=== PATIENT | male | born 1945 | race Caucasian/White ===

== ENCOUNTER → 2017-08-23 | Outpatient (CLI) | payer OTHER, MEDICARE ==
[~2017-08-23] VITALS: Ht 177.8 cm; Wt 83.9 kg
[~2017-08-23] MED LIST: ASPIR 8181 MG PO; CETIRIZINE HCL5 MG PO; FLOMAX0.4 MG PO; MULTI VITAMIN1 EACH PO; NEXIUM40 MG PO; WELLBUTRIN SR150 MG PO
--- NOTE | ~2017-08-23 | S ---
[facility] [address] SURGICAL PATH RPT PROCEDURE Name: BHAVIN RIZZO Room #: REG [facility] MManjinder.#: [id number] Admission: 08/23/17 Date of : 41 Discharge: Report #: [id number] Path Case #: [id number] PATHOLOGY REPORT COLLECTION DATE: 08/23/2017 RECEIVED DATE: 08/23/2017 SUBMITTING PHYS: Dr. Joaquim Mandujano OTHER PHYS: Dr. Tucker Goss SPECIMEN(S) RECEIVED: A.Periappendiceal cecum bx B.Cecum polyp * * * * * * * * * * * * FINAL DIAGNOSIS: A. Colon, periappendiceal/cecum, biopsy: - Sessile serrated polyp. B. Colon, cecum, biopsy: - Tubular adenoma. - Negative for high-grade dysplasia. PATHOLOGIST: Drew Issa M.D. REPORT ELECTRONICALLY SIGNED BY: Drew Issa M.D. DATE/TIME: 08/24/2017 10:01 * * * * * * * * * * * * GROSS PATHOLOGY: A. The specimen is received in formalin, labeled "Bhavin Rizzo and biopsy of javier-appendiceal cecum", multiple irregular fragments of levin soft tissue ranging from 0.1 up to 0.4 cm and measuring 0.5 x 0.3 x 0.1 cm in aggregate. Entirely submitted in A1. B. The specimen is received in formalin, labeled "Bhavin Rizzo and polyp at cecum", is a polypoid fragment of levin soft tissue 0.5 cm in greatest dimension. Entirely submitted in B1. (SWS; 08/23/2017) CLINICAL HISTORY: History polyps Diverticulosis, colon polyps INITIAL CPT CODE(S): A; 29640 B; 70685 Professional services performed by [facility] at [facility] [address] [place] [address] SURGICAL PATH RPT PROCEDURE Name: BHAVIN RIZZO Room #: REG [facility] aDvison#: [id number] Admission: 08/23/17 Date of : 41 Discharge: Report #: [id number] Path Case #: [id number] [address] [facility] , [place] [address] [facility] at [address] [place] [address], [address] [address]. [facility] [address] [place] [address] PHONE: [phone] DIRECTOR: David Funez M.D. * * * END OF REPORT * * *
--- NOTE | ~2017-08-23 | P ---
[facility] [place] [address] PROCEDURE REPORT Name: LOPEZ REAVES Room #: REG [facility]#: [id number] Admission: 08/23/17 Attend Phys: Joaquim Mandujano MD Discharge: Date of : 41 Report #: [id number] THIS REPORT FOR: //name// CC: Joaquim Goss MD DATE OF SERVICE: 08/23/2017 DATE OF SERVICE: 08/23/2017 BRIEF HISTORY: The patient is a 72-year-old male with history of colon polyps, for high risk screening colonoscopy. In addition, he had thickening of the periappendiceal orifice and previous biopsies revealed hyperplastic changes. PREOPERATIVE DIAGNOSIS: High risk screening colonoscopy due to history of colon polyps. POSTOPERATIVE DIAGNOSES: 1. Diminutive polyp, cecum. 2. Moderately severe diverticulosis coli, primarily sigmoid colon. 3. A thickening of periappendiceal cecum similar to previous findings. MEDICATIONS: Deep sedation with propofol per anesthesia. SPECIMEN: 1. Biopsies of periappendiceal cecum. 2. Cecal polyp. ESTIMATED BLOOD LOSS: 3 mL. PROCEDURE: Colonoscopy to cecum with biopsy. FINDINGS: Prior to propofol sedation, procedure of colonoscopy was discussed with the patient as well as potential risks and its complications. He indicates he understands and desires to proceed. DESCRIPTION OF PROCEDURE: With the patient in left lateral decubitus position, digital examination was completed which revealed no abnormalities. Subsequently, the [employer] RFID video colonoscope was introduced in the rectum, advanced under direct vision to the cecum. This was done with minimal difficulty. The cecum was identified by the ileocecal valve and the appendiceal orifice. I was able to advance the scope up to the mouth of the ileocecal valve, but due to a loop in the scope, we could not cross the ileocecal valve. At that point, the scope was slowly withdrawn and careful circumferential views obtained. Examination of the cecum revealed a thickening right at the mouth of the [facility] [address] [place] [address] PROCEDURE REPORT Name: LOPEZ REAVES Tracy Room #: REG [facility].#: [id number] Admission: 08/23/17 Attend Phys: Joaquim Mandujano MD Discharge: Date of : 41 Report #: [id number] appendiceal orifice. This has been previously noted and previous biopsies revealed hyperplastic changes in 2008. Biopsies were obtained again today. It was smooth and symmetrical and likely is a benign process. I cannot see any lesions arising from the appendiceal lumen. In addition, a diminutive cecal polyp was seen and removed by biopsy. The scope was further withdrawn and no additional mucosal abnormalities were noted. However, he was noted to have moderately severe diverticular disease of the sigmoid colon without endoscopic evidence of diverticulitis. Scope was withdrawn in the rectum. Upon retroflexion, no abnormalities were seen. Scope was withdrawn. The patient tolerated the procedure well. CONDITION OF THE PATIENT UPON DISCHARGE: Following procedure, the patient was drowsy, arousable and conversant and will be discharged home when fully ambulatory. INSTRUCTIONS TO THE PATIENT AND FAMILY AT THE TIME OF DISCHARGE: The patient with finding of polyps as noted above. We will follow up on the path and make further recommendations. If this is an adenomatous polyp, he is return in 5 years. If it is hyperplastic, then 10 years would be indicated. However, as far as the 10-year followup, I would leave that up to his overall helpful status at that point in time. If health status is good, he may wish to consider another colonoscopy even into his 80s. However, health status is poor, it may not be of benefit to continue to ____. Follow up on biopsies of the appendiceal orifice. Hopefully, these will be hyperplastic changes noted on last exam. Since it has been a number of years, if it is hyperplastic, I doubt further intervention will be needed. However, if neoplastic or other changes noted, we may need to consider further evaluation and potentially remove all the appendix. Last colonoscopy was about 8 years ago. Withdrawal time from the cecum was 14 minutes 10 seconds. <ELECTRONICALLY SIGNED> By: Joaquim Mandujano MD 08/23/17 [id number] Joaquim Mandujano MD /nt
== END | disposition home or self-care (01) ==
LOC: GI 07:16
DX: Z09 Encounter for follow-up examination after completed treatment for conditions other than malignant neoplasm (principal); D12.0 Benign neoplasm of cecum; K63.5 Polyp of colon; K63.89 Other specified diseases of intestine; K57.30 Diverticulosis of large intestine without perforation or abscess without bleeding; K21.9 Gastro-esophageal reflux disease without esophagitis; F32.89 Other specified depressive episodes; F17.210 Nicotine dependence, cigarettes, uncomplicated; Z85.828 Personal history of other malignant neoplasm of skin; Z79.82 Long term (current) use of aspirin; Z88.7 Allergy status to serum and vaccine
CPT/HCPCS: 62110; 62900